=== PATIENT | female | born 1985 | race Caucasian/White ===

== ENCOUNTER 2017-09-12 06:45 | Day surgery (SDC) | payer MEDICAID ==
[2017-09-12] MEDS ORDERED: Lactated Ringers 1,000 ML IV SCH ×2 (07:00→08:00)
[2017-09-12] MEDS ORDERED: Sodium Chloride 0.9% 10 ML Syringe FLUSH PRN (07:00)
[2017-09-12] MEDS ORDERED: ceFAZolin 1 GM in Sodium Chloride 0.9% 50 ML IV SCH (07:45)
[2017-09-12] MEDS ORDERED: ceFAZolin 1 GM Vial IV ONE (07:45)
[2017-09-12] MEDS ORDERED: HYDROmorphone 2 MG/ML SDV IVPUSH PRN (07:48)
[2017-09-12] MEDS ORDERED: Ondansetron 4 MG/2 ML SDV IVPUSH PRN (07:48)
[2017-09-12] MEDS ORDERED: Albuterol 0.083% 2.5 MG/3 ML Neb Soln NEB PRN (07:48)
[2017-09-12] MEDS ORDERED: Naloxone 0.4 MG/ML SDV IVPUSH PRN (07:48)
[2017-09-12] MEDS ORDERED: Promethazine 25 MG/ML SDV IM PRN (07:48)
[2017-09-12] MEDS ORDERED: fentaNYL 100 MCG/2 ML SDV IVPUSH PRN (07:48)
[2017-09-12] MEDS ORDERED: Meperidine PF 75 MG/ML Syringe IV ONE (08:00)
[2017-09-12] MEDS ORDERED: Propofol 200 MG/20 ML SDV IV ONE (08:00)
[2017-09-12] MEDS ORDERED: Lactated Ringers 1,000 ML IV ONE (08:00)
[2017-09-12] MEDS ORDERED: fentaNYL 100 MCG/2 ML SDV IV ONE (08:00)
[2017-09-12] MEDS ORDERED: Dexamethasone 4 MG/ML 5 ML MDV IVPUSH ONE (08:00)
[2017-09-12] MEDS ORDERED: Ondansetron 4 MG/2 ML SDV IVPUSH ONE (08:00)
[2017-09-12] MEDS ORDERED: HYDROmorphone 2 MG/ML SDV IV ONE (08:00)
[2017-09-12] MEDS ORDERED: Midazolam 1 MG/ML 2 ML SDV IV ONE (08:00)
[2017-09-12] MEDS ORDERED: Ketorolac 30 MG/ML SDV IVPUSH ONE (08:00)
[2017-09-12] MEDS ORDERED: Bupivacaine 0.25% 30 ML SDV INJECT ONE (08:16)
[2017-09-12] MEDS ORDERED: Lidocaine 1% with EPINEPHrine 1:100,000 20 ML MDV INJECT ONE (08:16)
[2017-09-12] MEDS ORDERED: Acetaminophen/HYDROcodone 325-5 MG Tab PO PRN (08:39)
--- NOTE | 2017-09-12 08:39 | PCM.OPNOTE ---
- General Post-Op/Procedure Note Date of Surgery/Procedure: 09/12/17 Operative Procedure(s): umbilical hernia repair Findings: 1 cm defect Pre Op Diagnosis: umbilical hernia Post-Op Diagnosis: Same Anesthesia Technique: General LMA, Local (6% ml 1% lido wtih epi/0.5% buvipicaine) Primary Surgeon: Travis Thompson Anesthesia Provider: Kolton Reeder Pathology: none EBL in mLs: 1 Complications: None Condition: Good Free Text/Narrative:: see dictation
--- NOTE | 2017-09-12 09:49 | OR ---
DATE OF OPERATION: 09/12/2017 SURGEON: Travis Thompson MD PROCEDURE PERFORMED: Umbilical hernia repair. PREOPERATIVE DIAGNOSIS: Umbilical hernia. POSTOPERATIVE DIAGNOSIS: Umbilical hernia. INDICATIONS FOR PROCEDURE: This is a 31-year-old white female who presents with a small symptomatic umbilical hernia. She was offered and accepted repair. DESCRIPTION OF PROCEDURE: After an excellent LMA anesthetic was administered, the patient was prepped and draped in the usual sterile manner. 6 mL of a 1:1 mixture of 1% lidocaine with epinephrine and 0.5% bupivacaine was used to infiltrate around the base of the umbilicus. Curvilinear incision was carried out and blunt dissection was carried out exposing the hernia sac. This was transected off the base of the umbilicus. The hernia sac was opened, and a small 1-cm defect was identified. This was opened to allow insertion of a finger tip and palpation to ensure there were no other defects in the area. The defect itself was closed with a running 0 Ethibond. 0 Vicryl was used to tack the umbilicus to the anterior abdominal wall, and the skin was closed with a running subcu 4-0 Vicryl. Needle, sponge, and instrument counts were reported as correct. The patient was taken to recovery room in a good condition. /[id number] /MODL
[2017-09-12 10:41] VITALS: BP 103/65
== END 2017-09-12 10:45 | disposition home or self-care (01) ==
LOC: FB.SDS 06:45
PROVIDERS: ATTEND Surgery
DX: K42.9 Umbilical hernia without obstruction or gangrene (principal); F32.9 Major depressive disorder, single episode, unspecified; E66.9 Obesity, unspecified; Z90.49 Acquired absence of other specified parts of digestive tract; Z98.890 Other specified postprocedural states; Z79.899 Other long term (current) drug therapy; Z88.2 Allergy status to sulfonamides; F17.210 Nicotine dependence, cigarettes, uncomplicated; Z68.25 Body mass index [BMI] 25.0-25.9, adult
CPT/HCPCS: 49585; 81025; A9270; J0690; J1100; J1170; J1885; J2175; J2250; J2405; J2704; J3010; J3490; J7120

== ENCOUNTER 2019-07-29 06:02 | Inpatient (IN) | payer OTHER ==
[~2019-07-29 06:02] MED LIST: Citric Acid/Sodium Citrate Solution 30 ML Cup PO ONE; Ketorolac 30 MG/ML SDV IVPUSH ONE; Lactated Ringers 1,000 ML IV SCH; Meperidine PF 100 MG/ML Syringe IV ONE; Midazolam 1 MG/ML 2 ML SDV IV ONE; Morphine PF 10 MG/10 ML SDV IV ONE; Ondansetron 4 MG/2 ML SDV IVPUSH ONE; Phenylephrine 1% 10 MG/ML SDV IV ONE; Scopolamine 1.5 MG Transdermal Patch TOP ONE; Sodium Chloride 0.9% 10 ML Syringe FLUSH PRN; fentaNYL 100 MCG/2 ML SDV IV ONE
[2019-07-29] MEDS ORDERED: Scopolamine 1.5 MG Transdermal Patch ONE (07:17)
--- NOTE | 2019-07-29 07:24 | PCM.SN ---
- Free Text/Narrative Note: Pt is a WF at 39 wks gestation for a repeat c section. Procedure and risks were explained to the patient to include bleeding infection injury to baby, bowel, bladder and blood vessel. Expressed understanding and asks us to proceed.
[2019-07-29] MEDS ORDERED: ceFAZolin 2 GM in Premix Bag 1 BAG IV ONE (08:00)
[2019-07-29] MEDS ORDERED: Ketorolac 30 MG/ML SDV IVPUSH PRN (09:05)
[2019-07-29] MEDS ORDERED: Ondansetron 4 MG/2 ML SDV IVPUSH PRN ×2 (09:05→09:35)
[2019-07-29] MEDS ORDERED: Naloxone 0.4 MG/ML SDV IVPUSH PRN ×2 (09:05→09:35)
[2019-07-29] MEDS ORDERED: ePHEDrine 50 MG/ML SDV IVPUSH PRN (09:05)
[2019-07-29] MEDS ORDERED: diphenhydrAMINE 50 MG/ML SDV IVPUSH PRN (09:05)
--- NOTE | 2019-07-29 09:16 | PCM.OPNOTE ---
- General Post-Op/Procedure Note Date of Surgery/Procedure: 07/29/19 Operative Procedure(s): c section repeat Findings: term female apgars 9 9 LOT presentation Pre Op Diagnosis: repeat c section Post-Op Diagnosis: Same Anesthesia Technique: Spinal Primary Surgeon: Travis Thompson Secondary Surgeon: Nuno Amaya Anesthesia Provider: Andrea Paz Pathology: placenta Fluid Replacement, Intraop: 1,600 Output, Urine Amount: 100 EBL in mLs: 500 Complications: None Condition: Good Free Text/Narrative:: see dictation
[2019-07-29] MEDS ORDERED: Nalbuphine 10 MG/1 ML Vial IVPUSH PRN (09:35)
[2019-07-29] MEDS ORDERED: diphenhydrAMINE 50 MG/ML SDV IV PRN (09:35)
[2019-07-29] MEDS: Lactated Ringers 1,000 ML IV SCH ×3 (10:09→21:58)
[2019-07-29] MEDS ORDERED: LORazepam 1 MG Tab PO PRN (12:31)
--- NOTE | 2019-07-29 13:01 | OR ---
DATE OF OPERATION: 07/29/2019 SURGEON: Travis Thompson MD PROCEDURE PERFORMED: Repeat section. PREOPERATIVE DIAGNOSIS: Repeat . POSTOPERATIVE DIAGNOSIS: Repeat . HERBARIUM CURATOR: Jose Luis. INDICATIONS FOR PROCEDURE: This is a 33-year-old white female, 39 weeks' gestation. She is G5, P3, has had a history of previous sections in the past and presents now for an elective . INTRAOPERATIVE FINDINGS: A term female infant was delivered. score of 9 and 9. LOT presentation. DESCRIPTION OF OPERATION: After an excellent spinal anesthetic was administered, the patient was prepped and draped in the usual sterile manner. An incision was made with a #10 scalpel blade through the previously existing incision site. The underlying subcu fat was divided using electrocautery. The fascia overlying the rectus muscle as well as the aponeurosis was then incised with an electrocautery and carried out transversely across the entire width of the abdomen. The fascia was grasped and elevated in a cephalad fashion. A combination of sharp and electrocautery dissection was used to create the superior flap as well as the inferior flap. There was a small bleeding point in the right rectus muscle, which was controlled with 0 Vicryl tie. The peritoneum was then grasped, elevated, and entered and the incision was carried down inferiorly. The bladder flap was raised bluntly. There was a small amount of oozing noted due to the previous scarring. The incision was then made through the uterus transversely with amniotic fluid delivered. The head was delivered, and then, the anterior as well as the posterior shoulder and then the cord. The cord was clamped as the child was being aspirated in her airway, and the baby was passed off the field. Cord specimen was obtained and then the placenta was delivered. The inside of the uterus was wiped down with a lap pad. The uterus was then closed in 2 layers using a running #1 Vicryl in a locking stitch followed by a #1 Vicryl in a Lembert stitch. After assuring hemostasis, the left and right colic gutters were irrigated as well as the space between the uterus and the rectum. The uterus was returned to normal anatomic position. The perineum was reapproximated with a running 2-0 Vicryl. The fascial defect was then closed with a running 0 Vicryl. The subcu fat was approximated using running subcu 3-0 Vicryl as was the skin. Steri-Strips were applied. Needle, sponge, and instrument counts were reported correct. EBL was approximately 500 mL. 100 mL of urine was obtained. She voided prior to surgery and approximately 1600 mL of crystalloid was given to the patient. /[id number] /MODL
[2019-07-29] MEDS ORDERED: Lactated Ringers 1,000 ML IV ONE (16:56)
[2019-07-29] MEDS: HYDROmorphone 2 MG/ML SDV IVPUSH PRN ×2 (19:14→21:52)
[2019-07-29] MEDS ORDERED: Lidocaine 2% HCl 6 ML JEL.PF.APP SCH (22:00)
[2019-07-29] MEDS ORDERED: Lidocaine 2% HCl 6 ML JEL.PF.APP ONE ×2 (22:02→22:04)
--- NOTE | 2019-07-29 22:55 | PCM.SURGPN ---
- General Info Date of Service: 07/29/19 POD#: 0 - Review of Systems Genitourinary: Reports: Other (pt had decreased urine output ealier this pm. bolus given with only 75 ml out. bladder scan showed 800 ml of urine. irrigation linton placed without any improvement. after discussion with urology the largest irrigation linton was placed 26 Fr with minimal results despite irrigation and aspiration. ) - Patient Data Vitals - Most Recent: Last Vital Signs Temp 97.9 F 07/29/19 16:00 Pulse 55 L 07/29/19 16:00 Resp 16 07/29/19 16:00 BP 105/63 07/29/19 16:00 Pulse Ox 97 07/29/19 16:00 Weight - Most Recent: 90.265 kg I&O - Last 24 Hours: Intake & Output 07/29/19 07/29/19 07/29/19 06:59 14:59 22:59 Intake Total 2016 1000 Output Total 200 100 Balance 1816 900 Lab Results Last 24 Hrs: Laboratory Results - last 24 hr 07/29/19 07/29/19 Range/Units 07:08 07:08 WBC 14.7 H (4.5-12.0) X10-3/uL RBC 4.07 (3.23-5.20) x10(6)uL Hgb 12.7 (11.5-15.5) g/dL Hct 36.5 (30.0-51.3) % MCV 89.7 (80-96) fL MCH 31.2 (27.7-33.6) pg MCHC 34.8 (32.2-35.4) g/dL RDW 13.7 (11.5-15.5) % Plt Count 347 (125-369) X10(3)uL MPV 8.3 (7.4-10.4) fL Neut % (Auto) 72.7 (46-82) % Lymph % (Auto) 15.7 (13-37) % Clarke % (Auto) 9.8 (4-12) % Eos % (Auto) 1 (1.0-5.0) % Baso % (Auto) 1 (0-2) % Neut # (Auto) 10.7 H (1.6-8.3) # Lymph # (Auto) 2.3 (0.6-5.0) # Clarke # (Auto) 1.4 H (0.0-1.3) # Eos # (Auto) 0.2 (0.0-0.8) # Baso # (Auto) 0.1 (0.0-0.2) # Blood Type A POSITIVE Gel Antibody Screen Negative Med Orders - Current: Current Medications Diphenhydramine HCl (Benadryl) 25 mg IVPUSH Q6H PRN PRN Reason: Itching or Nausea Diphenhydramine HCl (Benadryl) 25 mg IV ONETIME PRN PRN Reason: Pruritus Ephedrine Sulfate (Ephedrine Sulfate) 5 mg IVPUSH ASDIRECTED PRN PRN Reason: Other Hydromorphone HCl (Dilaudid) 1 mg IVPUSH Q1H PRN PRN Reason: Pain (moderate 4-6) Last Admin: 07/29/19 21:52 Dose: 1 mg Lactated Ringer's (Ringers, Lactated) 1,000 mls @ 999 mls/hr IV .BOLUS RAMSEY Last Admin: 07/29/19 07:00 Dose: 999 mls/hr Lactated Ringer's (Ringers, Lactated) 1,000 mls @ 150 mls/hr IV ASDIRECTED RAMSEY Last Infusion: 07/29/19 21:58 Dose: 75 mls/hr Ketorolac Tromethamine (Toradol) 30 mg IVPUSH Q8H PRN PRN Reason: Pain Stop: 08/03/19 09:07 Last Admin: 07/29/19 15:24 Dose: 30 mg Lorazepam (Ativan) 1 mg PO Q8H PRN PRN Reason: Anxiety Miscellaneous Information (Remove Patch) 1 ea TRDERM ONETIME ONE Stop: 07/30/19 09:01 Nalbuphine HCl (Nubain) 10 mg IVPUSH Q1H PRN PRN Reason: Pruritus Last Admin: 07/29/19 12:34 Dose: 10 mg Naloxone HCl (Narcan) 0.1 mg IVPUSH ONETIME PRN PRN Reason: Respiratory Depression Ondansetron HCl (Zofran) 4 mg IVPUSH Q4H PRN PRN Reason: Nausea/Vomiting Sodium Chloride (Saline Flush) 10 ml FLUSH ASDIRECTED PRN PRN Reason: Keep Vein Open Last Admin: 07/29/19 21:53 Dose: 10 ml Discontinued Medications Citric Acid/Sodium Citrate (Bicitra Solution) 30 ml PO ONETIME ONE Stop: 07/29/19 06:01 Last Admin: 07/29/19 07:21 Dose: 30 ml Cefazolin Sodium/Dextrose 2 gm (/ Premix) 50 mls @ 100 mls/hr IV ONETIME ONE Stop: 07/29/19 08:29 Last Admin: 07/29/19 07:40 Dose: 100 mls/hr Lactated Ringer's (Ringers, Lactated) 1,000 mls @ 999 mls/hr IV ONETIME ONE Stop: 07/29/19 17:56 Last Admin: 07/29/19 17:00 Dose: 999 mls/hr Lidocaine HCl (Glydo) Confirm Administered Dose 6 ml .ROUTE .STK-MED ONE Stop: 07/29/19 22:03 Lidocaine HCl (Glydo) Confirm Administered Dose 6 ml .ROUTE .STK-MED ONE Stop: 07/29/19 22:05 Scopolamine (Transderm-Scop) 1.5 mg TOP ONETIME ONE Stop: 07/29/19 06:01 Last Admin: 07/29/19 07:21 Dose: 1.5 mg Scopolamine (Transderm-Scop) Confirm Administered Dose 1.5 mg .ROUTE .STK-MED ONE Stop: 07/29/19 07:18 Last Admin: 07/29/19 07:39 Dose: Not Given - Exam Wound/Incisions: Dressing Dry and Intact - Problem List & Annotations (1) Delivery by section SNOMED Code(s): 270769125 Code(s): IOS0318 - Status: Acute Current Visit: Yes (2) Blood clot in bladder SNOMED Code(s): 49203543 Code(s): N32.89 - OTHER SPECIFIED DISORDERS OF BLADDER Status: Acute Current Visit: Yes Annotation/Comment:: blood clot in bladder with urinary retention - Problem List Review Problem List Initiated/Reviewed/Updated: Yes - My Orders Last 24 Hours: Active Orders 24 hr Category Date Time Status Patient Status [ADT] Routine ADT 07/29/19 06:00 Active Ambulate [RC] PER UNIT ROUTINE Care 07/29/19 09:05 Active Antiembolic Devices [RC] .Routine Care 07/29/19 06:00 Active Communication Order [RC] ASDIRECTED Care 07/29/19 09:36 Active Communication Order [RC] ASDIRECTED Care 07/29/19 09:36 Active Communication Order [RC] ASDIRECTED Care 07/29/19 09:36 Active Communication Order [RC] Per Unit Routine Care 07/29/19 09:06 Active Communication Order [RC] Per Unit Routine Care 07/29/19 09:06 Active Communication Order [RC] Per Unit Routine Care 07/29/19 09:06 Active Linton Catheter Insertion [Insert Urinary Catheter] [OM. Care 07/29/19 08:00 Ordered PC] Q24H Intake and Output [RC] Q4H Care 07/29/19 09:05 Active Intake and Output [RC] Q4HR Care 07/29/19 09:36 Active Oxygen Therapy [RC] PRN Care 07/29/19 09:36 Active Pasero Opioid Induced Sedation [RC] Q1H Care 07/29/19 09:36 Active RT Incentive Spirometry [RC] PER UNIT ROUTINE Care 07/29/19 06:00 Active RT Incentive Spirometry [RC] Q2HWA Care 07/29/19 09:07 Active Urinary Catheter Assessment [RC] QSHIFT Care 07/29/19 08:00 Active VTE/DVT Education [RC] Click to Edit Care 07/29/19 06:00 Active Vital Signs [RC] Q4HR Care 07/29/19 06:00 Active Wound Care [RC] QSHIFT Care 07/29/19 09:05 Active Clear Liquid Diet [DIET] Diet 07/29/19 Dinner Active CBC WITH AUTO DIFF [HEME] AM Lab 07/30/19 05:11 Ordered PATIENT RETYPE [BBK] Routine Lab 07/29/19 07:08 Results TYPE AND SCREEN [BBK] Routine Lab 07/29/19 07:08 Results HYDROmorphone [Dilaudid] Med 07/29/19 12:33 Active 1 mg IVPUSH Q1H PRN Ketorolac [Toradol] Med 07/29/19 09:05 Active 30 mg IVPUSH Q8H PRN LORazepam [Ativan] Med 07/29/19 12:31 Active 1 mg PO Q8H PRN Lactated Ringers [Ringers, Lactated] 1,000 ml Med 07/29/19 06:00 Active IV .BOLUS Lactated Ringers [Ringers, Lactated] 1,000 ml Med 07/29/19 07:00 Active IV ASDIRECTED Nalbuphine [Nubain] Med 07/29/19 09:35 Active 10 mg IVPUSH Q1H PRN Naloxone [Narcan] Med 07/29/19 09:05 Active 0.1 mg IVPUSH ONETIME PRN Ondansetron [Zofran] Med 07/29/19 09:05 Active 4 mg IVPUSH Q4H PRN Remove Patch Med 07/30/19 09:00 Once 1 ea TRDERM ONETIME ONE Sodium Chloride 0.9% [Saline Flush] Med 07/29/19 06:00 Active 10 ml FLUSH ASDIRECTED PRN diphenhydrAMINE [Benadryl] Med 07/29/19 09:35 Active 25 mg IV ONETIME PRN diphenhydrAMINE [Benadryl] Med 07/29/19 09:05 Active 25 mg IVPUSH Q6H PRN ePHEDrine [ePHEDrine sulfate] Med 07/29/19 09:05 Active 5 mg IVPUSH ASDIRECTED PRN Assess Lochia [WOMSER] Per Unit Routine Oth 07/29/19 09:05 Ordered Assess Uterine Involution [WOMSER] Per Unit Routine Oth 07/29/19 09:06 Ordered Breast Pump [WOMSER] Per Unit Routine Oth 07/29/19 09:05 Ordered DVT/VTE Prophylaxis Reflex [OM.PC] Routine Oth 07/29/19 06:00 Ordered Do Not Administer Anticoagulant Meds [AST] Per Unit Oth 07/29/19 09:36 Ordered Routine Do Not Administer IV Narcs or Sedatives [AST] Per Unit Oth 07/29/19 09:36 Ordered Routine Heat Therapy [OM.PC] Per Unit Routine Oth 07/29/19 09:07 Ordered Ice Therapy [OM.PC] Per Unit Routine Oth 07/29/19 09:07 Ordered Peripheral IV Insertion Adult [OM.PC] Routine Oth 07/29/19 06:00 Ordered Schedule Procedure [COMM] Per Unit Routine Oth 07/29/19 06:00 Ordered Medication Orders Diphenhydramine HCl (Benadryl) 25 mg IVPUSH Q6H PRN PRN Reason: Itching or Nausea Diphenhydramine HCl (Benadryl) 25 mg IV ONETIME PRN PRN Reason: Pruritus Ephedrine Sulfate (Ephedrine Sulfate) 5 mg IVPUSH ASDIRECTED PRN PRN Reason: Other Hydromorphone HCl (Dilaudid) 1 mg IVPUSH Q1H PRN PRN Reason: Pain (moderate 4-6) Last Admin: 07/29/19 21:52 Dose: 1 mg Admin: 07/29/19 19:14 Dose: 1 mg Lactated Ringer's (Ringers, Lactated) 1,000 mls @ 999 mls/hr IV .BOLUS RAMSEY Last Admin: 07/29/19 07:00 Dose: 999 mls/hr Lactated Ringer's (Ringers, Lactated) 1,000 mls @ 150 mls/hr IV ASDIRECTED RAMSEY Last Infusion: 07/29/19 21:58 Dose: 75 mls/hr Admin: 07/29/19 21:58 Dose: 150 mls/hr Infusion: 07/29/19 21:53 Dose: 75 mls/hr Admin: 07/29/19 15:12 Dose: 150 mls/hr Infusion: 07/29/19 14:56 Dose: 150 mls/hr Infusion: 07/29/19 13:00 Dose: 150 mls/hr Infusion: 07/29/19 12:40 Dose: 999 mls/hr Admin: 07/29/19 10:09 Dose: 150 mls/hr Ketorolac Tromethamine (Toradol) 30 mg IVPUSH Q8H PRN PRN Reason: Pain Stop: 08/03/19 09:07 Last Admin: 07/29/19 15:24 Dose: 30 mg Lorazepam (Ativan) 1 mg PO Q8H PRN PRN Reason: Anxiety Miscellaneous Information (Remove Patch) 1 ea TRDERM ONETIME ONE Stop: 07/30/19 09:01 Nalbuphine HCl (Nubain) 10 mg IVPUSH Q1H PRN PRN Reason: Pruritus Last Admin: 07/29/19 12:34 Dose: 10 mg Naloxone HCl (Narcan) 0.1 mg IVPUSH ONETIME PRN PRN Reason: Respiratory Depression Ondansetron HCl (Zofran) 4 mg IVPUSH Q4H PRN PRN Reason: Nausea/Vomiting Sodium Chloride (Saline Flush) 10 ml FLUSH ASDIRECTED PRN PRN Reason: Keep Vein Open Last Admin: 07/29/19 21:53 Dose: 10 ml - Assessment Assessment (Free Text/Narrative):: Have reached the limits of our ability to care for this issue. - Plan Plan (Free Text/Narrative):: After discussion with the urologist in [place] a second time. Transfer is felt to be prudent.
--- NOTE | 2019-07-29 23:14 | PCM.DCSUM1 ---
Discharge Summary - Discharge Data Discharge Date: 07/29/19 Discharge Disposition: DC/Tfer to Acute Hospital 02 Condition: Good - Referral to Home Health Primary Care Physician: Nuno Amaya MD - Discharge Diagnosis/Problem(s) (1) Delivery by section SNOMED Code(s): 932151952 ICD Code: [id number] - Status: Acute Current Visit: Yes (2) Blood clot in bladder SNOMED Code(s): 09536942 ICD Code: N32.89 - OTHER SPECIFIED DISORDERS OF BLADDER Status: Acute Current Visit: Yes Problem Details: blood clot in bladder with urinary retention - Patient Summary/Data Operative Procedure(s) Performed: c section repeat Complications: urinary retention secondary to blood clot - Patient Instructions Diet: Clear Liquid Diet Activity: No Strenuous Activities - Discharge Plan *PRESCRIPTION DRUG MONITORING PROGRAM REVIEWED*: No *COPY OF PRESCRIPTION DRUG MONITORING REPORT IN PATIENT PAULETTE: No Home Medications: Home Meds Clindamycin HCl [Cleocin] 300 mg PO WEEKLY 09/11/17 [History] Clobetasol [Temovate 0.05% Crm] 1 applic TOP DAILY PRN 09/11/17 [History] ClonazePAM [KlonoPIN] 0.5 mg PO BID PRN 09/11/17 [History] Fluticasone Propionate [Flonase] 2 spray NS DAILY PRN 09/11/17 [History] Loratadine [Claritin] 10 mg PO DAILY PRN 09/11/17 [History] valACYclovir HCl [Valtrex] 500 mg PO DAILY 09/11/17 [History] Acetaminophen/HYDROcodone [[place]on 325-5 MG] 1 - 2 tab PO Q6H PRN #20 tab [Rx] Ibuprofen [Motrin] 600 mg PO Q6H PRN #28 tab 09/12/17 [Rx] Fluticasone Propionate [Flonase] 2 spr NASBOTH DAILY PRN 07/25/19 [History] 147/Iron/Folic Acid [Azesco Tablet] 1 ea PO DAILY 07/25/19 [History] SUMAtriptan 100 mg PO ASDIRECTED PRN 07/25/19 [History] Selenium Sulfide [Selenium Sulfide 2.5% Lotion] 1 applic TOP ASDIRECTED [History] Patient Handouts: Venous Thromboembolism Prevention - Discharge Summary/Plan Comment DC Time >30 min.: No Discharge Summary/Plan Comment: transfer to [facility] [address] Norman ortega MD - Patient Data Vitals - Most Recent: Last Vital Signs Temp 97.9 F 07/29/19 16:00 Pulse 55 L 07/29/19 16:00 Resp 16 07/29/19 16:00 BP 105/63 07/29/19 16:00 Pulse Ox 97 07/29/19 16:00 Weight - Most Recent: 90.265 kg I&O - Last 24 hours: Intake & Output 07/29/19 07/29/19 07/30/19 14:59 22:59 06:59 Intake Total 2015 1000 Output Total 200 100 Balance 1816 900 Lab Results - Last 24 hrs: Laboratory Results - last 24 hr 07/29/19 07/29/19 Range/Units 07:08 07:08 WBC 14.7 H (4.5-12.0) X10-3/uL RBC 4.07 (3.23-5.20) x10(6)uL Hgb 12.7 (11.5-15.5) g/dL Hct 36.5 (30.0-51.3) % MCV 89.7 (80-96) fL MCH 31.2 (27.7-33.6) pg MCHC 34.8 (32.2-35.4) g/dL RDW 13.7 (11.5-15.5) % Plt Count 347 (125-369) X10(3)uL MPV 8.3 (7.4-10.4) fL Neut % (Auto) 72.7 (46-82) % Lymph % (Auto) 15.7 (13-37) % Meigs % (Auto) 9.8 (4-12) % Eos % (Auto) 1 (1.0-5.0) % Baso % (Auto) 1 (0-2) % Neut # (Auto) 10.7 H (1.6-8.3) # Lymph # (Auto) 2.3 (0.6-5.0) # Meigs # (Auto) 1.4 H (0.0-1.3) # Eos # (Auto) 0.2 (0.0-0.8) # Baso # (Auto) 0.1 (0.0-0.2) # Blood Type A POSITIVE Gel Antibody Screen Negative Med Orders - Current: Current Medications Diphenhydramine HCl (Benadryl) 25 mg IVPUSH Q6H PRN PRN Reason: Itching or Nausea Diphenhydramine HCl (Benadryl) 25 mg IV ONETIME PRN PRN Reason: Pruritus Ephedrine Sulfate (Ephedrine Sulfate) 5 mg IVPUSH ASDIRECTED PRN PRN Reason: Other Hydromorphone HCl (Dilaudid) 1 mg IVPUSH Q1H PRN PRN Reason: Pain (moderate 4-6) Last Admin: 07/29/19 21:52 Dose: 1 mg Lactated Ringer's (Ringers, Lactated) 1,000 mls @ 999 mls/hr IV .BOLUS RAMSEY Last Admin: 07/29/19 07:00 Dose: 999 mls/hr Lactated Ringer's (Ringers, Lactated) 1,000 mls @ 150 mls/hr IV ASDIRECTED RAMSEY Last Infusion: 07/29/19 21:58 Dose: 75 mls/hr Ketorolac Tromethamine (Toradol) 30 mg IVPUSH Q8H PRN PRN Reason: Pain Stop: 08/03/19 09:07 Last Admin: 07/29/19 15:24 Dose: 30 mg Lorazepam (Ativan) 1 mg PO Q8H PRN PRN Reason: Anxiety Miscellaneous Information (Remove Patch) 1 ea TRDERM ONETIME ONE Stop: 07/30/19 09:01 Nalbuphine HCl (Nubain) 10 mg IVPUSH Q1H PRN PRN Reason: Pruritus Last Admin: 07/29/19 12:34 Dose: 10 mg Naloxone HCl (Narcan) 0.1 mg IVPUSH ONETIME PRN PRN Reason: Respiratory Depression Ondansetron HCl (Zofran) 4 mg IVPUSH Q4H PRN PRN Reason: Nausea/Vomiting Sodium Chloride (Saline Flush) 10 ml FLUSH ASDIRECTED PRN PRN Reason: Keep Vein Open Last Admin: 07/29/19 21:53 Dose: 10 ml Discontinued Medications Citric Acid/Sodium Citrate (Bicitra Solution) 30 ml PO ONETIME ONE Stop: 07/29/19 06:01 Last Admin: 07/29/19 07:21 Dose: 30 ml Cefazolin Sodium/Dextrose 2 gm (/ Premix) 50 mls @ 100 mls/hr IV ONETIME ONE Stop: 07/29/19 08:29 Last Admin: 07/29/19 07:40 Dose: 100 mls/hr Lactated Ringer's (Ringers, Lactated) 1,000 mls @ 999 mls/hr IV ONETIME ONE Stop: 07/29/19 17:56 Last Admin: 07/29/19 17:00 Dose: 999 mls/hr Lidocaine HCl (Glydo) Confirm Administered Dose 6 ml .ROUTE .STK-MED ONE Stop: 07/29/19 22:03 Lidocaine HCl (Glydo) Confirm Administered Dose 6 ml .ROUTE .STK-MED ONE Stop: 07/29/19 22:05 Scopolamine (Transderm-Scop) 1.5 mg TOP ONETIME ONE Stop: 07/29/19 06:01 Last Admin: 07/29/19 07:21 Dose: 1.5 mg Scopolamine (Transderm-Scop) Confirm Administered Dose 1.5 mg .ROUTE .STK-MED ONE Stop: 07/29/19 07:18 Last Admin: 07/29/19 07:39 Dose: Not Given
[2019-07-29] MEDS ORDERED: Lactated Ringers 1,000 ML IV SCH (23:15)
[2019-07-30 00:26] VITALS: BP 120/71; PULSE 67
== END 2019-07-30 00:10 | DRG 788 ==
LOC: FB.OB 06:02 → UNDOADMIN 06:02 → UNDODISIN 07-30 00:10
PROVIDERS: ADMIT Family Medicine; ATTEND Surgery
PROC: 10D00Z1 Extraction of Products of Conception, Low, Open Approach (ICD-10-PCS; principal; 2019-07-29)
PROC: 3E1K78Z Irrigation of Genitourinary Tract using Irrigating Substance, Via Natural or Artificial Opening (ICD-10-PCS; 2019-07-29)
DX: O34.211 Maternal care for low transverse scar from previous cesarean delivery (principal); Z3A.39 39 weeks gestation of pregnancy; Z37.0 Single live birth; O75.89 Other specified complications of labor and delivery; N32.89 Other specified disorders of bladder; R33.9 Retention of urine, unspecified; Z88.2 Allergy status to sulfonamides; Z79.899 Other long term (current) drug therapy
CPT/HCPCS: 36415; 51702; 85025; 86850; 86900; 86901; 88307; 94150; A9270-GY; J0690; J1170; J1885; J2175; J2250; J2270; J2300; J2370; J2405; J2590; J3010; J3490; J7120

== ENCOUNTER 2020-03-29 14:51 | Emergency (ER) | payer MEDICAID, OTHER ==
[2020-03-29] MEDS ORDERED: Diphtheria,Pertussis(Acell),Tetanus Vaccine 0.5 ML SDV IM ONE (15:17)
--- NOTE | 2020-03-29 15:17 | EDM.PDOC ---
ED HPI GENERAL MEDICAL PROBLEM - General Chief Complaint: Lower Extremity Injury/Pain Stated Complaint: NAIL IN L FOOT Time Seen by Provider: 03/29/20 15:16 Source of Information: Reports: Patient, RN Notes Reviewed History Limitations: Reports: No Limitations - History of Present Illness INITIAL COMMENTS - FREE TEXT/NARRATIVE: 34 yo F who presented to the ER with puncture wound to the Left foot. Reports that she was working on a deck with her and accidentally stepped on a Nail. She has moderate bleeding from the Left Foot. she applied pressure on the wound and presented to the ER for further evaluation. Patient is unsure of Last tetanus immunization. Presented to the ER for further evaluation. Onset: Today Duration: Hour(s): (occurred 1 hour ago) Location: Reports: Lower Extremity, Left Left Foot Pain Score (Numeric/FACES): 5 - Related Data Allergies Allergy/AdvReac Type Severity Reaction Status Date / Time Sulfa (Sulfonamide Allergy Intermediate Hives Verified 03/29/20 14:55 Antibiotics) Home Meds: Home Meds valACYclovir HCl [Valtrex] 500 mg PO DAILY PRN 09/11/17 [History] Fluticasone Propionate [Flonase] 2 spr NASBOTH DAILY PRN 07/25/19 [History] FLUoxetine HCl [Prozac] 20 mg PO DAILY 03/29/20 [History] cephALEXin [Keflex] 500 mg PO Q8H #21 cap 03/29/20 [Rx] Past Medical History HEENT History: Reports: Allergic Rhinitis, Impaired Vision, Other (See Below) Other HEENT History: TMJ SYNDROME Gastrointestinal History: Reports: Gastritis Genitourinary History: Reports: UTI, Recurrent 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: Reports: Polycystic Ovaries, Other 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: 5 PARA 4 Musculoskeletal History: Reports: Back Pain, Chronic Neurological History: Reports: None Psychiatric History: Reports: Depression Endocrine/Metabolic History: Reports: None Immunologic History: Reports: Other (See Below) Other Immunologic History: HX OF SHINGLES Oncologic (Cancer) History: Reports: None Dermatologic History: Reports: None - Infectious Disease History Infectious Disease History: Reports: Other (See Below) Other Infectious Disease History: history of shingles - Past Surgical History Head Surgeries/Procedures: Reports: None HEENT Surgical History: Reports: Oral Surgery, Tonsillectomy GI Surgical History: Reports: Cholecystectomy Female Surgical History: Reports: Section, Other (See Below) Other Female Surgeries/Procedures: GENITAL HSV, IRREGULAR MENSES Musculoskeletal Surgical History: Reports: Other (See Below) Other Musculoskeletal Surgeries/Procedures:: LAMINECTOMY L4-L5 Social & Family History - Family History Family Medical History: Noncontributory - Tobacco Use Smoking Status *Q: Current Every Day Smoker Years of Tobacco use: 15 Packs/Tins Daily: 0.4 - Caffeine Use Caffeine Use: Reports: Soda Caffeine Use Comment: Drinks occasionally pre . - Recreational Drug Use Recreational Drug Use: No Review of Systems - Review of Systems Review Of Systems: See Below Constitutional: Reports: No Symptoms Eyes: Reports: No Symptoms Ears: Reports: No Symptoms Nose: Reports: No Symptoms Mouth/Throat: Reports: No Symptoms Respiratory: Reports: No Symptoms GI/Abdominal: Reports: No Symptoms Genitourinary: Reports: No Symptoms Musculoskeletal: Reports: Other (puncture wound left foot) Skin: Reports: No Symptoms Neurological: Reports: No Symptoms Psychiatric: Reports: No Symptoms ED EXAM, GENERAL - Physical Exam Exam: See Below Exam Limited By: No Limitations General Appearance: Alert, WD/WN, No Apparent Distress Eye Exam: Bilateral Eye: EOMI, PERRL Ears: Normal External Exam, Normal Canal, Hearing Grossly Normal, Normal TMs Ear Exam: Bilateral Ear: TM normal Nose: Normal Inspection, Normal Mucosa, No Blood Throat/Mouth: Normal Inspection, Normal Lips, Normal Teeth, Normal Gums, Normal Oropharynx, Normal Voice Head: Atraumatic, Normocephalic Neck: Normal Inspection Respiratory/Chest: No Respiratory Distress, Lungs Clear Cardiovascular: Normal Peripheral Pulses, Regular Rate, Rhythm, No JVD GI/Abdominal: Normal Bowel Sounds, Soft, Non-Tender, No Organomegaly, No Distention, No Abnormal Bruit Back Exam: Normal Inspection, Full Range of Motion Extremities: Normal Inspection, Normal Range of Motion, No Pedal Edema, Normal Capillary Refill, Other (Puncture wound sole of Left Foot) Neurological: Alert, Oriented, CN II-XII Intact, Normal Cognition, Normal Gait Psychiatric: Normal Affect, Normal Mood Course - Vital Signs Last Recorded V/S: Last Vital Signs Temp 36.7 C 03/29/20 14:51 Pulse 83 03/29/20 14:51 Resp 18 03/29/20 14:51 BP 140/86 03/29/20 14:51 Pulse Ox 98 03/29/20 14:51 - Orders/Labs/Meds Orders: Active Orders 24 hr Category Date Time Status Vaccines to be Administered [RC] PER UNIT ROUTINE Care 03/29/20 15:17 Active Meds: Medications Discontinued Medications Generic Name Dose Route Start Last Admin Trade Name Kenyatta PRN Reason Stop Dose Admin Diphtheria/Tetanus/Acell Pertussis 0.5 ml 03/29/20 15:17 03/29/20 15:20 Adacel IM 03/29/20 15:18 0.5 ml .ONCE ONE Administration Departure - Departure Time of Disposition: 15:21 Disposition: Home, Self-Care 01 Clinical Impression: Puncture wound of foot, left - Discharge Information Prescriptions: cephALEXin [Keflex] 500 mg PO Q8H #21 cap Instructions: Puncture Wound, [id number] Forms: ED Department Discharge Additional Instructions: Follow with PCP Antibiotics as prescribed Tylenol or Ibuprofen for pain Return if symptoms worsen Call your Physician or Return to Emergency Department if: * Your condition worsens in any way. * You develop fever greater than 100.4. * You have vomitting that does not stop with medications. * You have pain that is not controlled with medications. Sepsis Event Note - Evaluation Sepsis Screening Result: No Definite Risk - Focused Exam Vital Signs: Vital Signs Temp Pulse Resp BP Pulse Ox 03/29/20 14:51 36.7 C 83 18 140/86 98 Date Exam was Performed: 03/29/20 Time Exam was Performed: 15:36 - My Orders Last 24 Hours: My Active Orders 03/29/20 15:17 Vaccines to be Administered [RC] PER UNIT ROUTINE - Assessment/Plan Last 24 Hours: My Active Orders 03/29/20 15:17 Vaccines to be Administered [RC] PER UNIT ROUTINE
[2020-03-29 15:51] VITALS: BP 112/84; PULSE 80
== END 2020-03-29 15:35 | disposition home or self-care (01) ==
LOC: FB.ED 14:51
DX: S91.332A Puncture wound without foreign body, left foot, initial encounter (principal); F32.9 Major depressive disorder, single episode, unspecified; Z23 Encounter for immunization; F17.210 Nicotine dependence, cigarettes, uncomplicated; Z88.2 Allergy status to sulfonamides; Z79.899 Other long term (current) drug therapy; W45.0XXA Nail entering through skin, initial encounter
CPT/HCPCS: 90471; 90715; 99282

== ENCOUNTER 2020-09-09 04:25 | Emergency (ER) | payer OTHER ==
--- NOTE | 2020-09-09 05:33 | EDM.PDOC ---
ED HPI GENERAL MEDICAL PROBLEM - General Chief Complaint: Lower Extremity Injury/Pain Stated Complaint: ANKLE INJURY Time Seen by Provider: 09/09/20 04:35 Source of Information: Reports: Patient History Limitations: Reports: No Limitations - History of Present Illness INITIAL COMMENTS - FREE TEXT/NARRATIVE: Patient presented to the ED because of a left ankle injury. she apparently missed a step and twisted her left ankle. The pain is 8/10, and worse with ambulation. right ankle Pain Score (Numeric/FACES): 6 - Related Data Allergies Allergy/AdvReac Type Severity Reaction Status Date / Time Sulfa (Sulfonamide Allergy Intermediate Hives Verified 03/29/20 14:55 Antibiotics) Home Meds: Home Meds valACYclovir HCl [Valtrex] 500 mg PO DAILY PRN 09/11/17 [History] Fluticasone Propionate [Flonase] 2 spr NASBOTH DAILY PRN 07/25/19 [History] FLUoxetine HCl [Prozac] 20 mg PO DAILY 03/29/20 [History] cephALEXin [Keflex] 500 mg PO Q8H #21 cap 03/29/20 [Rx] Past Medical History HEENT History: Reports: Allergic Rhinitis, Impaired Vision, Other (See Below) Other HEENT History: TMJ SYNDROME Gastrointestinal History: Reports: Gastritis Genitourinary History: Reports: UTI, Recurrent 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: Reports: Polycystic Ovaries, Other 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: 5 PARA 4 Musculoskeletal History: Reports: Back Pain, Chronic Neurological History: Reports: None Psychiatric History: Reports: Depression Endocrine/Metabolic History: Reports: None Immunologic History: Reports: Other (See Below) Other Immunologic History: HX OF SHINGLES Oncologic (Cancer) History: Reports: None Dermatologic History: Reports: None - Infectious Disease History Infectious Disease History: Reports: Other (See Below) Other Infectious Disease History: history of shingles - Past Surgical History Head Surgeries/Procedures: Reports: None HEENT Surgical History: Reports: Oral Surgery, Tonsillectomy GI Surgical History: Reports: Cholecystectomy Female Surgical History: Reports: Section, Other (See Below) Other Female Surgeries/Procedures: GENITAL HSV, IRREGULAR MENSES Musculoskeletal Surgical History: Reports: Other (See Below) Other Musculoskeletal Surgeries/Procedures:: LAMINECTOMY L4-L5 Social & Family History - Family History Family Medical History: No Pertinent Family History - Tobacco Use Tobacco Use Status *Q: Current Every Day Tobacco User Years of Tobacco use: 10 Packs/Tins Daily: 0.5 Second Hand Smoke Exposure: Yes - Caffeine Use Caffeine Use: Reports: Coffee, Soda Caffeine Use Comment: Drinks occasionally pre . - Recreational Drug Use Recreational Drug Use: No Review of Systems - Review of Systems Review Of Systems: See Below Constitutional: Reports: No Symptoms Eyes: Reports: No Symptoms Ears: Reports: No Symptoms Nose: Reports: No Symptoms Mouth/Throat: Reports: No Symptoms Respiratory: Reports: No Symptoms Cardiovascular: Reports: No Symptoms GI/Abdominal: Reports: No Symptoms Genitourinary: Reports: No Symptoms Musculoskeletal: Reports: Joint Pain, Joint Swelling Skin: Reports: No Symptoms ED EXAM, GENERAL - Physical Exam Exam: See Below Exam Limited By: No Limitations General Appearance: Alert, No Apparent Distress Eye Exam: Bilateral Eye: PERRL Nose: Normal Inspection, Normal Mucosa Throat/Mouth: Normal Inspection, Normal Lips, Normal Teeth Head: Atraumatic, Normocephalic Neck: Normal Inspection, Supple, Non-Tender, Full Range of Motion Respiratory/Chest: No Respiratory Distress, Lungs Clear, Normal Breath Sounds Cardiovascular: Normal Peripheral Pulses, Regular Rate, Rhythm, No Edema, No Gallop GI/Abdominal: Normal Bowel Sounds, Soft, Non-Tender, No Organomegaly Back Exam: Normal Inspection, Full Range of Motion Extremities: Normal Inspection, Normal Range of Motion, Non-Tender Course - Vital Signs Text/Narrative:: Xray left ankle-see result crutches air splint Last Recorded V/S: Last Vital Signs Temp 36.3 C 09/09/20 04:30 Pulse 79 09/09/20 04:30 Resp 17 09/09/20 04:30 BP 112/62 09/09/20 04:30 Pulse Ox 99 09/09/20 04:30 - Orders/Labs/Meds Orders: Active Orders 24 hr Category Date Time Status Ankle Min 3V Rt [CR] Stat Exams 09/09/20 04:31 Taken Departure - Departure Time of Disposition: 05:45 Disposition: Home, Self-Care 01 Condition: Good Clinical Impression: Ankle sprain - Discharge Information Instructions: Ankle Sprain, [id number] Referrals: Nuno Amaya MD [Primary Care Provider] - Forms: ED Department Discharge Additional Instructions: Please read discharge instructions on ankle sprain Apply Ice Elevate Take ibuprofen 800 mg with tylenol 1000 mg every 8 hours as eeded for pain Use your crutches at all times Follow up as needed Sepsis Event Note (ED) - Evaluation Sepsis Screening Result: No Definite Risk - Focused Exam Vital Signs: Vital Signs Temp Pulse Resp BP Pulse Ox 09/09/20 04:30 36.3 C 79 17 112/62 99 - My Orders Last 24 Hours: My Active Orders 09/09/20 04:31 Ankle Min 3V Rt [CR] Stat - Assessment/Plan Last 24 Hours: My Active Orders 09/09/20 04:31 Ankle Min 3V Rt [CR] Stat
[2020-09-09 06:46] VITALS: BP 111/56; PULSE 70
--- NOTE | 2020-09-09 12:43 | CR ---
INDICATION: Fall down stairs. RIGHT ANKLE: Three views of the right ankle were obtained 09/09/20 - no comparisons. Fairly prominent soft tissue swelling is noted overlying the lateral malleolus with the medial malleolar area appearing relatively normal. The ankle mortise was intact with normal joint space and the dome of the talus appearing normal. A definite acute fracture or dislocation was not identified. If symptoms persist - if occult fracture site is suspected clinically re- examination in 10-14 days may be helpful. RANDYD
== END 2020-09-09 06:00 | disposition home or self-care (01) ==
LOC: FB.ED 04:25
DX: S93.401A Sprain of unspecified ligament of right ankle, initial encounter (principal); F32.9 Major depressive disorder, single episode, unspecified; F17.210 Nicotine dependence, cigarettes, uncomplicated; Z88.2 Allergy status to sulfonamides; Z79.899 Other long term (current) drug therapy; X50.1XXA Overexertion from prolonged static or awkward postures, initial encounter
CPT/HCPCS: 73610-RT; 99283-25

== ENCOUNTER 2021-03-01 22:45 | Emergency (ER) | payer OTHER ==
[2021-03-01 23:04] VITALS: BP 135/85; PULSE 94
[2021-03-01] MEDS ORDERED: Clindamycin HCl 150 MG Cap PO STA (23:17)
--- NOTE | 2021-03-01 23:17 | EDM.PDOC ---
ED HPI GENERAL MEDICAL PROBLEM - General Chief Complaint: Upper Extremity Injury/Pain Stated Complaint: PAIN IN ARM Time Seen by Provider: 03/01/21 22:55 Source of Information: Reports: Patient History Limitations: Reports: No Limitations - History of Present Illness INITIAL COMMENTS - FREE TEXT/NARRATIVE: Patient presented to the ED because of pain, redness, swelling of the left forearm and now spreading to the upper arm. there is no associated fever, chills. She was seen i the clinic yesterday and was started on Keflex 500 mg TID. 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 MANAGER History: 5 PARA 4 Musculoskeletal History: Reports: Back Pain, Chronic Neurological History: Reports: None Psychiatric History: Reports: Depression Endocrine/Metabolic History: Reports: None Immunologic History: Reports: Other (See Below) Other Immunologic History: HX OF SHINGLES Oncologic (Cancer) History: Reports: None Dermatologic History: Reports: None - Infectious Disease History Infectious Disease History: Reports: Other (See Below) Other Infectious Disease History: history of shingles - Past Surgical History Head Surgeries/Procedures: Reports: None HEENT Surgical History: Reports: Oral Surgery, Tonsillectomy GI Surgical History: Reports: Cholecystectomy, Other (See Below) Other GI Surgeries/Procedures: TUMMY TUCK 01/2021 Female Surgical History: Reports: Section, Other (See Below) Other Female Surgeries/Procedures: GENITAL HSV, IRREGULAR MENSES Musculoskeletal Surgical History: Reports: Other (See Below) Other Musculoskeletal Surgeries/Procedures:: LAMINECTOMY L4-L5 Social & Family History - Family History Family Medical History: No Pertinent Family History - Tobacco Use Tobacco Use Status *Q: Current Every Day Tobacco User Years of Tobacco use: 15 Packs/Tins Daily: 0 - Caffeine Use Caffeine Use: Reports: None Caffeine Use Comment: Drinks occasionally pre . - Recreational Drug Use Recreational Drug Use: No Review of Systems - Review of Systems Review Of Systems: See Below Constitutional: Reports: No Symptoms Eyes: Reports: No Symptoms Ears: Reports: No Symptoms Nose: Reports: No Symptoms Mouth/Throat: Reports: No Symptoms Respiratory: Reports: No Symptoms Cardiovascular: Reports: No Symptoms GI/Abdominal: Reports: No Symptoms Genitourinary: Reports: No Symptoms Musculoskeletal: Reports: No Symptoms Skin: Reports: Erythema Neurological: Reports: No Symptoms Psychiatric: Reports: No Symptoms ED EXAM, GENERAL - Physical Exam Exam: See Below Exam Limited By: No Limitations General Appearance: Alert, No Apparent Distress Ears: Normal External Exam, Normal Canal, Hearing Grossly Normal Nose: Normal Inspection, Normal Mucosa, No Blood Throat/Mouth: Normal Inspection, Normal Lips, Normal Teeth, Normal Gums, Normal Oropharynx, Normal Voice Head: Atraumatic, Normocephalic Neck: Normal Inspection, Supple, Non-Tender, Full Range of Motion Respiratory/Chest: No Respiratory Distress, Lungs Clear, Normal Breath Sounds Cardiovascular: Normal Peripheral Pulses, Regular Rate, Rhythm, No Edema, No Gallop GI/Abdominal: Normal Bowel Sounds, Soft, Non-Tender, No Organomegaly Back Exam: Normal Inspection, Full Range of Motion Extremities: Normal Inspection, Normal Range of Motion, Non-Tender Neurological: Alert, Oriented, CN II-XII Intact, Normal Cognition Skin Exam: Warm, Erythema Course - Vital Signs Text/Narrative:: Clindamycin 600 mg po x1 Last Recorded V/S: Last Vital Signs Temp 37.0 C 03/01/21 22:50 Pulse 94 03/01/21 22:50 Resp 16 03/01/21 22:50 BP 135/85 03/01/21 22:50 Pulse Ox 100 03/01/21 22:50 - Orders/Labs/Meds Meds: Medications Discontinued Medications Generic Name Dose Route Start Last Admin Trade Name Kenyatta PRN Reason Stop Dose Admin Clindamycin HCl 600 mg 03/01/21 23:17 03/01/21 23:25 Clindamycin Hcl 150 Mg Cap PO 03/01/21 23:18 600 mg NOW STA Administration Departure - Departure Time of Disposition: 23:25 Disposition: Home, Self-Care 01 Condition: Good Clinical Impression: Cellulitis - Discharge Information Prescriptions: Clindamycin HCl 600 mg PO TID #60 capsule Instructions: Cellulitis, Adult, [id number] Referrals: Nuno Amaya MD [Primary Care Provider] - Forms: ED Department Discharge Additional Instructions: please read discharge instructions on cellulitis Apply heat Take ibuprofen 800 mg with tylenol 1000 mg every 8 hours as needed for pain Take cephalexin 500 mg with clindamycin 600 mg 3 times daily for 10 days Follow up in 5 days if no improvement Sepsis Event Note (ED) - Evaluation Sepsis Screening Result: No Definite Risk
== END 2021-03-01 23:30 | disposition home or self-care (01) ==
LOC: FB.ED 22:45
DX: L03.114 Cellulitis of left upper limb (principal); Z88.2 Allergy status to sulfonamides; Z72.0 Tobacco use
CPT/HCPCS: 99283; A9270